=== PATIENT | male | born 1950 | race Caucasian/White ===

== ENCOUNTER → 2020-02-20 | Day surgery (SDC) | payer MEDICARE ==
[~2020-02-20] MED LIST: AVODART0.5 MG PO; CRESTOR40 MG PO; FLOMAX0.4 MG PO; HALCION0.125 MG PO; MULTIVITAMINS1 EAC6 PO; NORCO 5-325 TA1 EAC1 PO; ZYRTEC10 M4 PO
--- NOTE | ~2020-02-20 | OP ---
[facility] [address] [place] [address] OPERATIVE REPORT Name: OPAL QUEZADA Room: [facility]#: [id number] Admission: 02/20/20 Attend Phys: Gordy Garcia Discharge: Date of : 52 Report #: [id number] THIS REPORT FOR: //name// cc: Ava Moore. Ava Thurston. DO ~ THIS REPORT FOR: //name// CC: Gordy Moore DATE OF SERVICE: 02/20/2020 PREOPERATIVE DIAGNOSIS: Incarcerated umbilical hernia. POSTOPERATIVE DIAGNOSIS: Incarcerated umbilical hernia. OPERATION: Laparoscopic repair of incarcerated umbilical hernia with mesh. SURGEON: Gordy Garcia MD ANESTHESIA: General. ESTIMATED BLOOD LOSS: Minimal. SPECIMEN: None. DESCRIPTION OF PROCEDURE: After informed consent was obtained, the patient was brought to the operating room and placed supine. SCDs were placed and working, preoperative antibiotics were administered, general anesthesia was induced. The abdomen was prepped and draped in the usual sterile fashion. A 5 mm incision was made in the left upper quadrant. A 5 mm trocar was placed under direct vision. An 8 mm left side and a 5 mm trocar was placed. The hernia had incarcerated omentum. This was carefully reduced. Hernia defect measured less than 1 cm. An [address] mesh was inserted. It was brought up to the abdominal wall. This was done with a 2-0 Ethibond suture placed through the mesh prior to placing in the abdomen. The mesh was then tacked with 30 absorbable tacks with the absorbable fix tacker. I then placed the transfascial 2-0 Ethibond suture in the superior aspect of the mesh using a suture passer. This covered the defect widely. The ports were then removed under direct vision. The skin was closed with 4-0 Monocryl. Incisions were sealed with Dermabond. COMPLICATIONS: [place] [address] OPERATIVE REPORT Name: OPAL QUEZADA Room: [facility].#: [id number] Admission: 02/20/20 Attend Phys: Gordy Garcia Discharge: Date of : 52 Report #: [id number] DISPOSITION: The patient was taken to recovery in satisfactory condition. By: [id number] Garcia MD /jo
[2020-02-20 09:00] LABS: CALCIUM 8.6 mg/dL (8.5-10.1); CREATININE 1.1 mg/dL (0.6-1.3)
[2020-02-20 09:19] LABS: HEMATOCRIT 40.2 % (42.0-52.0); HEMOGLOBIN 13.7 gm/dL (14.0-18.0); MCH 29.1 pg (26.0-34.0); MCHC 34.2 g/dL (28.0-37.0); MCV 85.3 fL (80.0-100.0); MPV 6.9 fl. (7.2-11.1); RBC 4.71 mil/uL (4.50-6.00)
--- NOTE | 2020-02-20 16:15 | EKG ---
[place] [address] ELECTROCARDIOGRAM REPORT Name: OPAL QUEZADA Room: [facility]#: [id number] Admission: 02/20/20 Attend Phys: Gordy Peacock Discharge: Date of : 52 Date of Service: 02/20/20825 Report #: [id number] THIS REPORT FOR: //name// [facility] Test Date: 2020-02-20 Test Time: 08:26:08 Pat Name: OPAL QUEZADA Department: Room: Gender: Photography Assistant: : 1950 Requested By: Gordy Garcia Order Number: [id number] Ibeth MD: Ivan Linder Measurements Intervals [place] Rate: 71 P: 25 MI: 204 QRS: 86 QRSD: 120 T: 79 QT: 426 QTc: 463 Interpretive Statements Sinus rhythm Nonspecific intraventricular conduction delay Compared to ECG 08/17/2009 06:30:13 Incomplete right bundle-branch block no longer present Electronically Signed On 02-20-2020 16:13:21 CDT by Ivan Linder [email or web address] <ELECTRONICALLY SIGNED> By: Ivan Linder MD, [facility] 02/20/20 1613 0826 08 Ivan Linder MD, [facility] /EPI
== END | disposition home or self-care (01) ==
LOC: M.SUR 06:53
PROVIDERS: Surgery
DX: K42.0 Umbilical hernia with obstruction, without gangrene (principal); Z98.890 Other specified postprocedural states; Z79.899 Other long term (current) drug therapy; Z88.8 Allergy status to other drugs, medicaments and biological substances